=== PATIENT | female | born 1940 | race Caucasian/White ===

== ENCOUNTER → 2020-02-28 11:18 | Outpatient (CLI) | payer MEDICARE, SELFPAY ==
--- NOTE | ~2020-02-28 | MMUS_ITS ---
EXAMINATION: MM diagnostic ritika RT w hannah, US breast RT limited HISTORY: Patient with history of right breast cancer undergoing radiation therapy with new palpable m ass of the breast TECHNIQUE: Craniocaudal, mediolateral, and mediolateral oblique 3-D tomosynthesis images of the right breast were performed and synthetic 2-D images were generated. CAD analysis was submitted and interp reted. High resolution limited right breast ultrasound was performed. COMPARISON: 06/03/2016, 06/01/2015 , no recent mammogram is available for comparison. BREAST PARENCHYMAL COMPOSITION: There are scattered areas of fibroglandular density. FINDINGS: MAMMOGRAPHIC FINDINGS: There are lumpectomy changes in the posterior third of the upper, slightly outer breast at the 11:00 location 8 cm from the nipple. There is a 4.0 x 2.3 cm high density mass at the lumpectomy site. Scat tered benign-appearing calcifications are evident. Changes of right axillary lymph node dissection ar e also noted. ULTRASOUND: There is a 4.4 x 1.5 cm oval, complex cystic and solid mass with irregular margins at the 11:00 locat ion 7 cm from the nipple corresponding to the palpable abnormality of concern. This is in the region of the lumpectomy change. IMPRESSION: 1. Findings most likely reflecting postoperative seroma/hematoma at the lumpectomy site. 2. Comparison with recent prior mammograms is necessary to assess for interval change. BI-RADS Category 0: Incomplete: Needs comparison with prior mammograms. Reviewed, dictated and finalized at location A. IMPRESSION: 1. Findings most likely reflecting postoperative seroma/hematoma at the lumpect padmaja site. 2. Comparison with recent prior mammograms is necessary to assess for interval change. BI-RADS Category 0: Incomplete: Needs comparison with prior mammograms.
== END ==
PROVIDERS: Visit Provider Radiology Radiation Oncology
DX: N63.10 Unspecified lump in the right breast, unspecified quadrant (principal); R92.8 Other abnormal and inconclusive findings on diagnostic imaging of breast
CPT/HCPCS: 76642; 77061; 77065; G0279

== ENCOUNTER 2021-08-01 09:58 | Emergency (ER) | payer MEDICARE, SELFPAY ==
--- NOTE | 2021-08-01 10:03 | ED.FALL ---
HPI - Fall General Chief Complaint: Extremity Injury, Lower Stated Complaint: Fall Injury/ Right Knee/ Left Elbow Time Seen by Provider: 08/01/21 10:03 Source: patient and RN notes reviewed History of Present Illness HPI Narrative: Patient is an 81-year-old female who presents the urgent care with complaints of left elbow pain. Patient states that she had multiple injuries after a fall the day before and was seen at the [facility] for multiple x-rays. Patient states that all the x-rays were negative for fracture. States that she is having a hard time getting the left elbow to heal. States that her has been changing the bandage daily. No other acute complaints. No acute distress noted. Patient read the plan of care. Some parts of this dictation were generated by voice recognition software and may contain typographical and/or grammatical inaccuracies. Related Data Home Medications Medication Instructions Recorded Confirmed acetaminophen [Tylenol Arthritis 650 mg PO Q8H 01/18/20 08/01/21 Pain] albuterol sulfate [Ventolin HFA] 2 puff INHALATION QID PRN 01/18/20 08/01/21 anastrozole 1 mg PO DAILY 01/18/20 08/01/21 cetirizine 5 mg PO DAILY 01/18/20 05/16/21 cholecalciferol (vitamin D3) 100 mcg PO DAILY 01/18/20 08/01/21 [Vitamin D3] fluoxetine 40 mg PO DAILY 01/18/20 08/01/21 fluticasone propion-salmeterol 1 inh INHALATION Q12H 01/18/20 08/01/21 glucosamine-chondroitin 1 ml PO DAILY 01/18/20 05/16/21 ibandronate 150 mg PO ONCE 01/18/20 08/01/21 levothyroxine 50 mcg PO DAILY 01/18/20 08/01/21 montelukast 10 mg PO HS 01/18/20 08/01/21 omeprazole 20 mg PO DAILY 01/18/20 08/01/21 Allergies Allergy/AdvReac Type Severity Reaction Status Date / Time Sulfa (Sulfonamide Allergy Mild Nausea and Verified 08/01/21 10:15 Antibiotics) Vomiting Review of Systems Review of Systems: CONSTITUTIONAL: Denies fever, chills, or sweats. EYES: Denies visual changes, redness, or discharge. ENT: Denies rhinorrhea, congestion, sore throat, or otalgia. CARDIOVASCULAR: Denies chest pain, palpitations, or edema. RESPIRATORY: Denies cough or dyspnea. GASTROINTESTINAL: Denies abdominal pain, nausea, vomiting, or diarrhea. GENITOURINARY: Denies dysuria or hematuria. SKIN: Reports of a wound to the left elbow MUSCULOSKELETAL: Denies back pain, joint pain, or myalgia. NEUROLOGIC: Denies headache, numbness, or weakness. All other systems reviewed are negative, except as documented in HPI. [facility] Past Medical History Medical History (Updated 08/01/21 @ 10:26 by ÁLVARO Branch) Anemia Anxiety Arthritis COPD (chronic obstructive pulmonary disease) Depression GERD (gastroesophageal reflux disease) Hypothyroidism Non-Hodgkin lymphoma Schwannoma Seasonal allergies Family History Family History (Updated 01/18/20 @ 09:58 by Dylan Wolfe*MD Ingris) Sibling Lung cancer Social History Social History (Updated 01/18/20 @ 10:58 by Dylan WolfeMD) Smoking packs per day: 1 Smoking cigarettes per day: 20.0 Years smoked: 30 Smoking pack-years: 30.00 Smoking status: Former smoker Tobacco type: cigarettes Spiritual care concerns: No Comments At the time of my signature, I reviewed and agree with the nursing past medical, surgical, social, and family history. There is no relevant family history pertinent to the patient complaint. Exam Narrative: GENERAL: This is a well-nourished, well-developed patient, in no apparent distress. HEAD: normocephalic, atraumatic. EYES: PERRL. Sclera clear/white. Vision is grossly intact. EARS: External ears normal NOSE: External nose normal with no obvious nasal discharge, nares without redness, no rhinorrhea. THROAT: Mucous membranes moist NECK: Neck supple CARDIOVASCULAR: Regular rate and rhythm without murmurs, gallops, or rubs. RESPIRATORY: Clear to auscultation. Breath sounds equal bilaterally. No wheezes, rales, or rhonchi. SKIN: 7 x 8 cm op
[2021-08-01 10:08] VITALS: BP 145/45; PULSE 80; RESP 20; TEMP 36.7; O2SAT 98
== END 2021-08-01 10:31 | disposition home or self-care (01) ==
PROVIDERS: Emergency Provider Nurse Practitioner Family; PCP Family Medicine
DX: S51.012D Laceration without foreign body of left elbow, subsequent encounter (principal); W19.XXXD Unspecified fall, subsequent encounter; M19.90 Unspecified osteoarthritis, unspecified site; J44.9 Chronic obstructive pulmonary disease, unspecified; K21.9 Gastro-esophageal reflux disease without esophagitis; E03.9 Hypothyroidism, unspecified; Z85.72 Personal history of non-Hodgkin lymphomas; Z87.891 Personal history of nicotine dependence
CPT/HCPCS: 99203; G0463